=== PATIENT | male | born 1995 | race Two or more races ===

== ENCOUNTER 2018-10-06 20:37 | Emergency (ER) | payer SELFPAY ==
[2018-10-06 20:38] VITALS: O2SAT 99
[2018-10-06 21:06] VITALS: BP 169/112; PULSE 81; RESP 14; TEMP 97.6
[2018-10-06] MEDS: AMOXIL/CLAVULANATE 875/125 TAB PO ONE (21:13)
[2018-10-06] MEDS ORDERED: KETOROLAC TROMETHAMINE 30 MG/ML SOL ONE (21:22)
[2018-10-06] MEDS: KETOROLAC TROMETHAMINE 30 MG/ML SOL IM ONE (21:28)
[2018-10-06] MEDS ORDERED: AUGMENTIN(FRIDGE) 400 MG/5 ML ONE (21:29)
[2018-10-06] MEDS: AMOXIL/CLAVULANATE 400/5 ML PDR PO ONE (21:32)
== END 2018-10-06 22:15 | disposition home or self-care (01) | DRG 159 ==
LOC: ED 20:37
DX: K02.9 Dental caries, unspecified (principal)
CPT/HCPCS: 96372; 99282; J1885; A9270-GY